=== PATIENT | female | born 1955 | race Caucasian/White ===

== ENCOUNTER 2024-04-10 14:27 | Emergency (ER) | payer OTHER, SELFPAY ==
[2024-04-10 14:43] VITALS: BP 180/101
[2024-04-10 15:01] VITALS: BP 160/87
[2024-04-10 15:16] VITALS: BP 147/84
[2024-04-10 15:27] LABS: % Basophils 0.9 % (0-2); % Eosinophils 1.8 % (0-6); % Immature Granulocytes 0.3 % (0-0.5); % Lymphocytes 31.9 % (20.5-51.1); % Monocytes 8.2 % (1.7-9.3); % Neutrophils 56.9 % (42.2-75.2); Absolute Basophils 0.1 10^3/uL (0-0.2); Absolute Eosinophils 0.1 10^3/uL (0-0.7); Absolute Lymphocytes 2.2 10^3/uL (1.2-3.4); Absolute Monocytes 0.6 10^3/uL (0.1-0.6); Absolute Neutrophils 3.9 10^3/uL (1.4-6.5); Hematocrit 36.8 % (37.0-47.0); Hemoglobin 12.6 g/dL (12.0-16.0); Mean Corp Hgb Conc. 34.2 g/dL (33.0-37.0); Mean Corpuscular Hgb 29.2 pg (27.0-31.0); Mean Corpuscular Volume 85.4 fL (81.0-99.0); Mean Platelet Volume 9.3 fL (7.4-10.4); Nucleated Red Blood Cells % 0 %; Platelet Count 249 10^3/uL (130-400); Red Blood Cell Count 4.31 10^6/uL (4.20-5.40); Red Cell Dist. Width 13.2 % (11.5-14.5); White Blood Cell Count 6.8 10^3/uL (4.8-10.8)
[2024-04-10 15:41] VITALS: BP 159/88
[2024-04-10 15:41] LABS: ALT (SGPT) 22 U/L (0-35); AST (SGOT) 27 U/L (14-36); Albumin 4.6 g/dl (3.5-5.0); Alkaline Phosphatase 51 U/L (38-126); Blood Urea Nitrogen 20 mg/dl (7-17); Calcium 10.9 mg/dl (8.4-10.2); Carbon Dioxide 27 mmol/L (22-30); Chloride 103 mmol/L (98-107); Glucose 102 mg/dl (70-99); Lipase 51 U/L (23-300); Potassium 4.4 mmol/L (3.5-5.1); Sodium 140 mmol/L (135-145); Total Bilirubin 0.6 mg/dl (0.2-1.3); Total Protein 7.3 g/dl (6.3-8.2); eGFR > 60.00
[2024-04-10 15:51] LABS: Troponin I 0.022 ng/ml
[2024-04-10 16:00] VITALS: BP 156/89
--- NOTE | 2024-04-10 16:56 | ED.GENMED ---
History of Present Illness
General
Chief Complaint: Chest Pain
Source: patient and spouse
Exam Limitations: none
Time Seen by Provider: 04/10/24 15:07
Nursing documentation reviewed up to this point in time: agreed with
History of Present Illness
History of Present Illness:
68-year-old female past medical history of hypertension hyperlipidemia presenting to the emergency department today with concerns of intermittent chest pain shortness of breath over the past few days. Symptoms somewhat worsening symptoms after
going up the stairs also noticed midnight last night of a heart rate of 124 with some mild chest discomfort at that time. Denies symptoms while here. Initially blood pressure was elevated
Past History
Past History
ED Past Medical History: HTN
ED Past Surgical History:
Social History
Tobacco: Non-smoker
Alcohol: Occasional
Personal:
Living: with family
Family History
Family History: Unable to obtain
Review of Systems
Review of Systems
Allergies reviewed?: Yes
All Other Systems: ROS reviewed and negative except as documented in HPI and ROS
Phy Exam
Physical Exam
Physical Exam:
GENERAL: Alert , in no apparent distress
EYE: pupils equal and reactive
NECK: Supple, no significant adenopathy.
ENT: o/p clr, mmm.
CARDIAC: Regular rate and rhythm .
LUNGS: Clear breath sounds bilaterally, no acute respiratory distress, no wheezes/rales/rhonchi
ABDOMEN: Soft, without focal tenderness, no r/g, no cvat
NEUROLOGICAL: Alert and oriented, no focal neuro deficits
SKIN: Warm and dry, skin intact.
MUSCULOSKELETAL: No edema, well perfused.
PSYCH: Normal and appropriate interaction.
Scores
Heart Score for Chest Pain Patients
STEMI patient?: No
History: Slightly or Non-Suspicious
ECG: Nonspecific Repolarization
Age: >/= 65 years
Risk Factors: 1 or 2 Risk Factors
Troponin: </= Normal Limit
Heart Score for Chest Pain Patients: 4
Heart Score Risk: 20.3% MACE over next 6 weeks
Course
Orders/Labs/Results
Orders:
Orders
04/10/24 15:11
EKG [Electrocardiogram (*1)] Urgent
Reason for Study: Chest Pain
Chest [CR Chest - 2 Views ] Urgent
Comment:
Reason For Exam: cp
04/10/24 15:12
EKG- Treatment ONCE
04/10/24 15:19
Complete Blood Count/With Diff Urgent
Comprehensive Metabolic Panel Urgent
Lipase Urgent
Troponin I Urgent
Abnormal Lab Results
04/10/24
15:19
Hct 36.8 L %
(37.0-47.0)
BUN 20 H mg/dl
(7-17)
Glucose 102 H mg/dl
(70-99)
Calcium 10.9 H mg/dl
(8.4-10.2)
04/10/24 15:19
04/10/24 15:19
Vital Signs
Initial and Last Documented VS:
Initial Vital Signs
Temp Pulse Resp BP Pulse Ox
98.4 F 89 18 180/101 98
04/10/24 14:43 04/10/24 14:43 04/10/24 14:43 04/10/24 14:43 04/10/24 14:43
Last Documented Vital Signs
Temp Pulse Resp BP Pulse Ox
98.4 F 63 16 157/83 98
04/10/24 14:43 04/10/24 17:00 04/10/24 17:00 04/10/24 17:00 04/10/24 17:00
MDM/Problems Addressed
MDM/Problems Addressed:
68-year-old female presenting to the emergency department today with concerns of chest discomfort intermittently last night had episode where her heart rate was elevated also had some chest pain associated. Here assessment without emergent findings
EKG nonischemic troponin negative. Patient appears stable for outpatient close cardiology follow-up return precautions given.
*Critical Care Note
Total Time (30-74mins, 75-104mins- exclusive of procedures): Not Applicable
ED Attending Note
-
Portions of this chart may have been created with voice recognition software.� Occasional wrong word or��sound alike� substitutions may have occurred due to the inherent limitations of voice recognition software.
Discharge Plan
Departure
Patient Disposition: Home (Routine Discharge)
Date of Disposition: 04/10/24
Time of Disposition: 16:56
Patient with high blood pressure during this ER visit?: No
Condition: Good
Covid-19: Not Applicable
Discharge Problem:
Chest pain
Instructions: Chest Pain DCA Follow Up
Prescriptions:
No Action
lisinopril 10 MG tablet
10 mg PO DAILY
metronidazole 500 MG tablet
500 mg PO TID Qty: 20 0RF
levofloxacin 500 MG tablet
500 mg PO DAILY Qty: 9 0RF
Referrals:
Delilah King MD [Family Provider] -
Activity Restrictions/Additional Instructions:
You came to the emergency department today with concerns of chest discomfort.. Here you had a reassuring assessment. Please follow closely with cardiology. Return to the emergency department any worsening, new or concerning symptoms.
Interventions
Interventions:
*Risk Screen - Suicide Last Done: 04/10/24 14:43
*General Assessment Last Done: 04/10/24 14:43
*Neglect/Abuse Screening Last Done: 04/10/24 14:43
ED- Fall Risk Assessment Last Done: 04/10/24 15:20
*ED COVID-19 Vaccine History Last Done: 04/10/24 14:43
*Nursing Disposition Last Done: 04/10/24 17:12
ED- Cardiac Assessment Last Done: 04/10/24 15:20
Discharge Date and Time
Discharge Date/Time: 04/10/24 17:12
Print Language: [id number]
[2024-04-10 17:00] VITALS: BP 157/83
== END 2024-04-10 17:12 | disposition home or self-care (01) ==
LOC: EMR 14:27
PROVIDERS: EMERGENCY PHYSICIAN Emergency Medicine; FAMILY PHYSICIAN Internal Medicine
DX: R07.89 Other chest pain (principal); E78.5 Hyperlipidemia, unspecified; I10 Essential (primary) hypertension
CPT/HCPCS: 99285; 71046; 80053; 83690; 84484; 85025; 93005

== ENCOUNTER → 2024-04-29 07:23 | Outpatient (REF) | payer OTHER, SELFPAY | LOC: DHCBC/DCA 07:23 | PROVIDERS: ATTENDING PHYSICIAN Internal Medicine Cardiovascular Disease; FAMILY PHYSICIAN Internal Medicine | DX: R07.89 Other chest pain (principal) | CPT/HCPCS: 78452; 93017; A9500; J2785 ==

== ENCOUNTER 2024-04-29 17:34 | Inpatient (IN) | payer OTHER, SELFPAY ==
[2024-04-29] VITALS (7 sets, daily range): BP systolic 108–176; BP diastolic 62–106; BMI 31.2
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
[2024-04-29 16:07] LABS: Hematocrit 35.6 % (37.0-47.0); Hemoglobin 12.2 g/dL (12.0-16.0); Mean Corp Hgb Conc. 34.3 g/dL (33.0-37.0); Mean Corpuscular Hgb 29.2 pg (27.0-31.0); Mean Corpuscular Volume 85.2 fL (81.0-99.0); Mean Platelet Volume 9.1 fL (7.4-10.4); Platelet Count 284 10^3/uL (130-400); Red Blood Cell Count 4.18 10^6/uL (4.20-5.40); Red Cell Dist. Width 12.7 % (11.5-14.5); White Blood Cell Count 7.5 10^3/uL (4.8-10.8)
[2024-04-29 16:15] LABS: ALT (SGPT) 26 U/L (0-35); AST (SGOT) 29 U/L (14-36); Albumin 4.3 g/dl (3.5-5.0); Alkaline Phosphatase 51 U/L (38-126); Blood Urea Nitrogen 17 mg/dl (7-17); Calcium 10.5 mg/dl (8.4-10.2); Carbon Dioxide 28 mmol/L (22-30); Chloride 103 mmol/L (98-107); Glucose 102 mg/dl (70-99); Potassium 4.2 mmol/L (3.5-5.1); Sodium 141 mmol/L (135-145); Total Bilirubin 0.2 mg/dl (0.2-1.3); eGFR > 60.00
[2024-04-29 16:18] LABS: INR 0.99; PT 13.1 Sec (11.4-14.6)
[2024-04-29 16:19] LABS: APTT 29.3 Sec (23.4-35.0)
[2024-04-29 16:27] LABS: Troponin I 0.034 ng/ml
[2024-04-29 16:39] LABS: % Basophils 1.1 % (0-2); % Eosinophils 1.5 % (0-6); % Immature Granulocytes 0.1 % (0-0.5); % Lymphocytes 31.3 % (20.5-51.1); % Monocytes 5.8 % (1.7-9.3); % Neutrophils 60.2 % (42.2-75.2); Absolute Basophils 0.1 10^3/uL (0-0.2); Absolute Eosinophils 0.1 10^3/uL (0-0.7); Absolute Lymphocytes 2.3 10^3/uL (1.2-3.4); Absolute Monocytes 0.4 10^3/uL (0.1-0.6); Absolute Neutrophils 4.5 10^3/uL (1.4-6.5); Nucleated Red Blood Cells % 0 %
--- NOTE | 2024-04-29 16:54 | CON.CAR ---
Addendum entered and electronically signed by Rodolfo Centeno MD 04/30/24 00:14:
I saw and examined the patient.
The Linen Tech's note was reviewed and I agree with the note.
Comment:
GEN: No distress, awake, Ox3
HEENT: supple, anicteric, mmm
LUNGS: CTA, no wheezes/rales
CV: Reg, S1/S2, 1/6 syst LSB, no gallop
ABD: soft, BS+, NT/ND
EXT: No edema
NEURO: Gross non-focal
SKIN: No rash
PLan:
Pt with unstable angina s/p abnormal nuclear stress test today
Cont IV heparin/ASA/Toprol
check lipids
likely switch to atorvastatin
Cont Lisinopril
Cath in AM
Original Note:
Consultation
Consultation Request
Date/Time Consultation Performed: 04/29/24
Requesting Provider: Dr. Gonzalez
Performing Provider: Jennifer Espana PA-C for Dr. Centeno
Reason for Consultation: abnormal stress test
Medical History
-
Chief Complaint: abnormal stress test
History of Present Illness:
Patient is a 68 yo F with PMH of HTN, HLD, remote former smoker who was seen as new patient in office 04/15/24 for evaluation of chest discomfort explained as pressure, mostly at night for about a month's duration. She was then visiting the
[place] with friends and noted discomfort after climbing several flights of stairs. She had been seen in ER and trop negative x1 and EKG with NSSTS. She was ordered exercise nuclear stress test completed 04/29/24 which was abnormal with large,
mod to severe reversible defect in anterior wall and septum from basal portion through apex consistent with LAD territory ischemia and EF 59%. She was sent to ER for admission with plan for cardiac catheterization in AM. She does note that after her
stress test today when she ran up the stairs to get changed, she again had recurrent chest pain that improved after taking Tums. No pain currently while in ER.
PMH:
HTN
HLD
remote former smoker
Past Medical History
Past Medical History: Other (in HPI)
Social History
Tobacco: Former Smoker (14y/o to 24 y/o )
Personal:
Living: With Family
Family History
Family History: CAD
Allergies / Home Medications
Allergy/AdvReac Type Severity Reaction Status Date / Time
Penicillins Allergy Unknown Verified 04/29/24 15:16
Sulfa (Sulfonamide Allergy Unknown Verified 04/29/24 15:16
Antibiotics)
�Medication �Instructions �Recorded �Confirmed �Type
amlodipine 5 mg tablet 5 mg PO DAILY 04/29/24 04/29/24 History
biotin 10,000 mcg chewable tablet 10,000 mcg PO DAILY 04/29/24 04/29/24 History
(Hair, Skin and Nails (biotin))
cholecalciferol (vitamin D3) 125 125 mcg PO DAILY 04/29/24 04/29/24 History
mcg (5,000 unit) tablet (Vitamin
D3)
lisinopril 20 mg tablet 20 mg PO DAILY 04/29/24 04/29/24 History
pantoprazole 40 mg tablet,delayed 40 mg PO DAILY 04/29/24 04/29/24 History
release
pravastatin 20 mg tablet 20 mg PO MOWEFR 04/29/24 04/29/24 History
vitamins A,C,N-abnz-cjatzm 4,296 1 cap PO DAILY 04/29/24 04/29/24 History
mcg-226 mg-90 mg capsule
(PreserVision AREDS)
Review of Systems
-
History Source: Patient
All other systems: Negative unless noted
Physical Exam
Vital Signs
Temp Pulse Resp BP Pulse Ox
98.4 F 70 14 145/95 100
04/29/24 15:16 04/29/24 15:45 04/29/24 15:45 04/29/24 15:45 04/29/24 15:45
Lab Results
04/29/24 15:52
04/29/24 15:52
Troponin I 0.034 ng/ml 04/29/24 15:52
Physical Exam
General: Well Developed, Well Nourished and No Apparent Distress
HEENT: Normocephalic, Anicteric and Moist Mucous Membranes
Respiratory: Clear and Non Labored Respirations
Cardiac: S1/S2 and Regular Rhythm
Musculoskeletal: No Clubbing, No Cyanosis and No Edema
Skin: Warm and Dry
Neuro: AO x 3 and Nonfocal/Grossly Intact
Psych: Calm
Impression / Plan
-
PCP: Dr. King
Sugar Reprocess Operator Head: Dr. Clinton
Impression:
Chest pain
Unstable angina
Abnormal stress test 04/29/2024
HTN
HLD
remote former smoker
Plan:
-She has been having progressive SOB and chest pain over the past month or so. Seen by cardiology and arranged for stress test.
-Stress test 04/29 was abnormal with moderate to severe reversible defect seen in the anterior wall and septum consistent with LAD territory ischemia.
-Patient called with results and she noted chest pain recurred after stress test and she was referred to [facility] for further urgent evaluation given unstable symptoms.
-In ER, initial troponin 0.034, continue to trend.
-EKG reviewed. SR, no acute ischemic changes noted.
-Took 324mg aspirin earlier in ER. Continue aspirin 81mg daily
-Given unstable symptoms, will start heparin
-NPO after midnight for LHC in AM.
-Check CVE, Hgb A1c in AM.
-Continue pravastatin for now, will likely need to transition to high intensity statin after LHC.
-Start Toprol 25mg daily, continue OP lisinopril 20mg daily and amlodipine 5mg daily.
-Further recommendations to be made post cath.
HPI: Patient is a 68 yo F with PMH of HTN, HLD, remote former smoker who was seen as new patient in office 04/15/24 for evaluation of chest discomfort explained as pressure, mostly at night for about a month's duration. She was then visiting the
[place] with friends and noted discomfort after climbing several flights of stairs. She had been seen in ER and trop negative x1 and EKG with NSSTS. She was ordered exercise nuclear stress test completed 04/29/24 which was abnormal with large,
mod to severe reversible defect in anterior wall and septum from basal portion through apex consistent with LAD territory ischemia and EF 59%. She was sent to ER for admission with plan for cardiac catheterization in AM. She does note that after her
stress test today when she ran up the stairs to get changed, she again had recurrent chest pain that improved after taking Tums. No pain currently while in ER.
Data Reviewed
-
EKG: Tracing Personally Visualized and interpreted
Medical Tests (Nuc Med, Echo etc): Report Reviewed by me
Labs: Labs Reviewed by me
Old Records: Reviewed
[2024-04-29] MEDS: NITRO-BID 1 INCH TOPICAL (17:08)
[2024-04-29] MEDS: HEPARIN 25000 UNITS/250 ML IV (18:36)
[2024-04-29] MEDS: TOPROL XL 25 MG PO (18:36)
[2024-04-29 20:57] LABS: Troponin I 0.044 ng/ml
--- NOTE | 2024-04-29 21:23 | PTCARENOTE ---
Pt admitted to room 2246. Pt AAOx3 VSS. Denies pain or SOB. Ambulates independently in the room. Heparin gtt 10ml/hr. Pt oriented to room. All safety measures in place.
[2024-04-30] VITALS (11 sets, daily range): BP systolic 104–167; BP diastolic 64–150; BMI 31.0
[2024-04-30 00:30] LABS: APTT 74.1 Sec (23.4-35.0)
[2024-04-30 05:45] LABS: Hematocrit 33.7 % (37.0-47.0); Hemoglobin 11.6 g/dL (12.0-16.0); Mean Corp Hgb Conc. 34.4 g/dL (33.0-37.0); Mean Corpuscular Hgb 29.3 pg (27.0-31.0); Mean Corpuscular Volume 85.1 fL (81.0-99.0); Mean Platelet Volume 9.2 fL (7.4-10.4); Platelet Count 253 10^3/uL (130-400); Red Blood Cell Count 3.96 10^6/uL (4.20-5.40); Red Cell Dist. Width 12.5 % (11.5-14.5); White Blood Cell Count 7.6 10^3/uL (4.8-10.8)
[2024-04-30 06:09] LABS: APTT 93.1 Sec (23.4-35.0)
[2024-04-30 06:10] LABS: Troponin I 0.042 ng/ml
[2024-04-30 06:43] LABS: Blood Urea Nitrogen 15 mg/dl (7-17); Calcium 10.3 mg/dl (8.4-10.2); Carbon Dioxide 24 mmol/L (22-30); Chloride 107 mmol/L (98-107); Estimated Creatinine Clearance 68 ml/min; Glucose 98 mg/dl (70-99); HDL Cholesterol 65 mg/dl; LDL Cholesterol, Calculated 87 mg/dl; Sodium 142 mmol/L (135-145); Total Cholesterol 175 mg/dl (50-199); Triglyceride 119 mg/dl (10-149); Very Low Density Lipoprotein 23 mg/dl (0-30); eGFR > 60.00
[2024-04-30] MEDS: NORVASC 5 MG PO (08:31)
[2024-04-30] MEDS: TOPROL XL 25 MG PO (08:32)
[2024-04-30] MEDS: ZESTRIL 20 MG PO (08:32)
[2024-04-30] MEDS: PROTONIX 40 MG PO (08:32)
[2024-04-30] MEDS: VITAMIN D3 (cholecalciferol) 125 MCG PO (08:32)
[2024-04-30] MEDS: LOW STRENGTH ASPIRIN 81 MG PO (08:32)
--- NOTE | 2024-04-30 08:56 | ITS.CL.CATH ---
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
Cardiac Catheterization
Procedure Report:
LEFT HEART CATHETERIZATION AND CORONARY INTERVENTION
Date of Procedure: April 30, 2024
Referring: Dean Centeno
PROCEDURES:
1. Left catheterization, coronary angiogram.
2. Ultrasound-guided access.
3. Successful percutaneous coronary artery intervention of a 80% proximal LAD stenosis with a 3.0 x 18 mm Medtronic [place] drug-eluting stent, postdilated using IVUS guidance with a 3.5 x 15 mm NC balloon at 18 rosa distally and 20 rosa proximally with
an excellent angiographic result and 0% residual stenosis.
4. Intravascular ultrasound (IVUS)
INDICATION: Patient is a 68-year-old female with past medical history of hypertension, hyperlipidemia who presents with 1 month long history of intermittent chest discomfort and shortness of breath referred for nuclear stress test which showed
significant perfusion abnormality which is reversible in the LAD territory and therefore patient was directed for further workup and management to the emergency department yesterday. Her initial troponin had been negative with mild uptrending
concerning for possible acute coronary syndrome. She is now being referred for a left heart catheterization to rule out obstructive CAD. Peak troponin of 0.05.
ACCESS: Right radial artery, 6 [place] sheath, under ultrasound guidance
HEMODYNAMICS : (mmHg)
AO (s/d) : 118/72
LV (s/d) : 122/8
LVEDP : 19
CORONARY FINDINGS
DOMINANCE: Right
LEFT MAIN: Left main is cloacal in appearance giving rise to a left anterior descending artery and the left circumflex artery. Minimal luminal irregularities.
LEFT ANTERIOR DESCENDING: The left anterior descending artery is a medium to large caliber vessel which gives rise to 2 major diagonal branches as it courses to the anterior interventricular groove and wraps around the apex. There is a 80% tubular
proximal LAD stenosis. Intervention was performed here with details below.
CIRCUMFLEX: The left circumflex artery is a large-caliber vessel which gives rise to 3 major obtuse marginal branches and 2 posterolateral branches. There is minimal luminal irregularities.
RIGHT CORONARY ARTERY: The right coronary artery is a large-caliber, dominant vessel which gives rise to the right posterior descending artery. There is minimal luminal irregularities.
CORONARY INTERVENTION: Decision was made to proceed with intervention to the proximal LAD. Additional heparin was given to maintain a therapeutic ACT throughout the case. The left coronary artery was selectively engaged using a 6 [place] JR L3.5
guide catheter. A 190 cm 0.014' BMW coronary wire was advanced into the left circumflex artery. A second 190 cm 0.014' power turn flex wire was carefully navigated across the proximal LAD stenosis into the distal LAD. The proximal LAD stenosis
was predilated using a 3.0 x 10 mm semi-compliant balloon at 14 rosa with good expansion. The lesion was subsequently stented using a 3.0 x 18 mm Medtronic Mabelv[place] frontier drug-eluting stent. The stent was postdilated using IVUS guidance with a 3.5 x
15 mm NC balloon at 18 rosa distally and 20 rosa proximally with an excellent angiographic result. Post PCI IVUS showed a well-expanded and well apposed stent without evidence of distal or proximal stent edge dissections. Patient was loaded with 180
mg of Brilinta at the end of the case. She tolerated the procedure well with no acute complications.
SEDATION: 84 minutes of procedural sedation was utilized. An independent medical record librarian was present to assist with and help manage the patient's level of consciousness and physiologic status.
RADIATION SUMMARY: Fluoro Time (min): 13.6, Dose (mGy): 779.51, DAP (Gy.cm2) : 37.19
Closure Device: Vascular band over right radial artery, 10 cc of air.
CONCLUSIONS
1. Successful percutaneous coronary artery intervention of a 80% proximal LAD stenosis with a 3.0 x 18 mm Medtronic [place] drug-eluting stent, postdilated using IVUS guidance with a 3.5 x 15 mm NC balloon at 18 rosa distally and 20 rosa proximally with
an excellent angiographic result and 0% residual stenosis. Post PCI IVUS showed a well-expanded and well apposed stent without evidence of distal or proximal stent edge dissections.
2. No obstructive coronary artery disease otherwise.
3. Elevated LVEDP at 19 mmHg.
RECOMMENDATIONS
1. Dual antiplatelet therapy with daily baby aspirin and Brilinta 90 mg twice daily along with high intensity statin and beta-porsha as tolerated.
2. Wean radial band per protocol.
3. Full echocardiogram to assess biventricular function and rule out any significant valvular abnormalities.
4. Aggressive management of cardiovascular risk factors.
5. Referral for outpatient cardiac rehab.
Copy to: Robert Clinton MD and Dean Centeno MD
Amy Razo MD, [facility], [facility]
--- NOTE | 2024-04-30 09:12 | PTCARENOTE ---
pt is sr on the monitor, hr in the 80s, vss. pt offers no complaints at this time. pt educated on plan of care and pt verbalized understanding. call salomon within reach.
pt off unit for procedure.
[2024-04-30 09:13] LABS: Glycohemoglobin (HgbA1c) 5.6 % (4.0-5.6)
[2024-04-30 09:38] LABS: ACT-LR - POC 265 Seconds (116-155)
[2024-04-30 09:48] LABS: ACT-LR - POC 324 Seconds (116-155)
[2024-04-30 10:05] LABS: ACT-LR - POC 302 Seconds (116-155)
--- NOTE | 2024-04-30 10:48 | PTCARENOTE ---
received pt post cath. pt offers no complaints at this time. right radial band cdi. pt denies pain at this time. pt educated on plan of care and pt verbalized understanding. pt resting in bed comfortably.
--- NOTE | 2024-04-30 12:23 | CM ---
Addendum entered by Erin Campos RN 04/30/24 13:03:
Patient is agreeable to cost
Original Note:
Pricing on Brilinta through the patient's [facility] is $45 for a 30 day supply. I will place a free 30 day coupon in the patient's red discharge folder.
--- NOTE | 2024-04-30 13:04 | CM ---
Chart reviewed. Patient is independent of ADLS, lives with her in a 2 STH, 0 RADHA, 0 DME. Plan is for the patient to return home. CM to follow
--- NOTE | 2024-04-30 17:35 | PTCARENOTE ---
pt continues to be sr on the monitor, hr in the 70s, vss. pt offers no complaints at this time. pt has been ambulating and tolerating well. right radial is CDI. pt offers no complaints at this time. pt educated on plan of care and pt verbalized
understanding. call salomon within reach.
[2024-04-30] MEDS: CRESTOR 20 MG PO (17:47)
[2024-04-30] MEDS: BRILINTA 90 MG PO (19:47)
--- NOTE | 2024-04-30 22:05 | PTCARENOTE ---
Rec'd pt at change of shift. AAOX3. Tele- SR 60s. Assessment completed as documented. R radial dsg is c/d/i. Pt has no c/o pain/discomfort at this time. Plan of care reviewed w/ pt. Verbalizes understanding. Currently in bed; call umm w/in reach.
[2024-05-01 02:42] VITALS: BP 124/80
[2024-05-01 02:59] LABS: Hematocrit 35.1 % (37.0-47.0); Hemoglobin 12.4 g/dL (12.0-16.0); Mean Corp Hgb Conc. 35.3 g/dL (33.0-37.0); Mean Corpuscular Hgb 29.7 pg (27.0-31.0); Mean Corpuscular Volume 84.2 fL (81.0-99.0); Platelet Count 286 10^3/uL (130-400); Red Blood Cell Count 4.17 10^6/uL (4.20-5.40); Red Cell Dist. Width 12.7 % (11.5-14.5); White Blood Cell Count 8.3 10^3/uL (4.8-10.8)
[2024-05-01 03:46] LABS: Blood Urea Nitrogen 17 mg/dl (7-17); Calcium 10.6 mg/dl (8.4-10.2); Carbon Dioxide 26 mmol/L (22-30); Chloride 103 mmol/L (98-107); Estimated Creatinine Clearance 60 ml/min; Glucose 96 mg/dl (70-99); Sodium 140 mmol/L (135-145); eGFR > 60.00
--- NOTE | 2024-05-01 06:50 | W.PN.CARDCBS ---
Addendum entered and electronically signed by Vasquez Montero MD 05/01/24 09:07:
Patient seen and examined
Agree with PRODUCTION SKI REPAIRER note and assessment
Agree with PRODUCTION SKI REPAIRER plan
�
����Physical Exam
�
���������������������General:��no apparent distress, not acutely ill
�
���������������������������Neck:��supple. no meningeal signs. normal psoterior pharynx
������������������������
���������������������������Heart:��s1/s2 regular rate and rhythm, no murmur. equal radial pulses.
�
��������������������������Lungs: ��no acute respiratory distress. clear bilaterally
�
����������������������Abdomen:�normal bowel sounds. not tender. no CVAT
�
��������������������������Neuro:��alert and oriented. no focal neurological deficits
�
������������������������������Skin: ��no rash
�
�����������������������Psychiatric:�well kept. interactive and cooperative
�
�����������������������Extremities:��no edema. no calf tenderness. negative homans. good distal pulses
�
�
�
��
�
Warehouse Operator: Dr. Clinton
Impression:
s/p PTCA and NANI prox LAD
Chest pain
Unstable angina
Abnormal stress test 04/29/2024
elevated troponins
HTN
HLD
remote former smoker
LHC 04/30/24: LM: min LIs, LAD: 80% prox stenosis - NANI placed, LCIRC and RCA w/ min LIs
echo 04/30/24: EF 60-65%, no wall motion abnl, nl RV
EKG1:NSR, T wave inversions V2, V3- no change compared to 04/30/24 EKG
telemetry personally reviewed: NSR, HR 50-60s.
Plan:
-s/p PTCA and NANI prox LAD 04/30/24, Medtronic [place] stent
-DAPT ASA/Brilinta
-high intensity statin- LDL 87 on 04/30/24, switched from Pravastatin to Rosuvastatin 20 mg
-Toprol 25 mg daily started
-cont outpt Lisinopril 20 mg and Amlodipine 5 mg
-Hgb A1c 5.6
-echo post cath showed nl LV fxn with no wall motion abnl
-referral for outpt cardiac rehab- consult was placed 04/30/24
-f/u Dr Willard scheduled for 06/09/24
For discharge today
Original Note:
Today's Communication / Plan
-
-s/p NANI LAD
-DAPT, high intensity statin, beta porsha, BP control
-cardiac rehab
-ok for d/c today
Impression / Plan
-
PCP: Dr. King
Warehouse Operator: Dr. Clinton
Impression:
s/p PTCA and NANI prox LAD
Chest pain
Unstable angina
Abnormal stress test 04/29/2024
elevated troponins
HTN
HLD
remote former smoker
LHC 04/30/24: LM: min LIs, LAD: 80% prox stenosis - NANI placed, LCIRC and RCA w/ min LIs
echo 04/30/24: EF 60-65%, no wall motion abnl, nl RV
EKG1:NSR, T wave inversions V2, V3- no change compared to 04/30/24 EKG
telemetry personally reviewed: NSR, HR 50-60s.
Plan:
-s/p PTCA and NANI prox LAD 04/30/24, Medtronic Pullman stent
-DAPT ASA/Brilinta
-high intensity statin- LDL 87 on 04/30/24, switched from Pravastatin to Rosuvastatin 20 mg
-Toprol 25 mg daily started
-cont outpt Lisinopril 20 mg and Amlodipine 5 mg
-Hgb A1c 5.6
-echo post cath showed nl LV fxn with no wall motion abnl
-referral for outpt cardiac rehab- consult was placed 04/30/24
-f/u Dr Hullman scheduled for 06/09/24
-She has been having progressive SOB and chest pain over the past month or so. Seen by cardiology and arranged for stress test.
-Stress test 04/29 was abnormal with moderate to severe reversible defect seen in the anterior wall and septum consistent with LAD territory ischemia.
-Patient called with results and she noted chest pain recurred after stress test and she was referred [facility] for further urgent evaluation given unstable symptoms.
-In ER, initial troponin 0.034, peak 0.050
-EKG reviewed. SR, no acute ischemic changes noted.
-Took 324mg aspirin earlier in ER. Continue aspirin 81mg daily
-Given unstable symptoms, will start heparin
-NPO after midnight for LHC in AM.
-Check CVE, Hgb A1c in AM.
-Continue pravastatin for now, will likely need to transition to high intensity statin after LHC.
-Start Toprol 25mg daily, continue OP lisinopril 20mg daily and amlodipine 5mg daily.
-Further recommendations to be made post cath.
HPI: Patient is a 68 yo F with PMH of HTN, HLD, remote former smoker who was seen as new patient in office 04/15/24 for evaluation of chest discomfort explained as pressure, mostly at night for about a month's duration. She was then visiting the
[place] with friends and noted discomfort after climbing several flights of stairs. She had been seen in ER and trop negative x1 and EKG with NSSTS. She was ordered exercise nuclear stress test completed 04/29/24 which was abnormal with large,
mod to severe reversible defect in anterior wall and septum from basal portion through apex consistent with LAD territory ischemia and EF 59%. She was sent to ER for admission with plan for cardiac catheterization in AM. She does note that after her
stress test today when she ran up the stairs to get changed, she again had recurrent chest pain that improved after taking Tums. No pain currently while in ER.
Progress Note - Warehouse Operator
Subjective
Date of Service: May 01, 2024
s/p NANI prox LAD 04/30/24
no recurrent CP
would like to go home
Objective
Labs:
05/01/24 02:45
05/01/24 02:45
Labs
Hgb 12.4 g/dL (12.0-16.0) 05/01/24 02:45
Hct 35.1 % (37.0-47.0) L 05/01/24 02:45
Plt Count 286 10^3/uL (130-400) 05/01/24 02:45
PT 13.1 Sec (11.4-14.6) 04/29/24 15:52
INR 0.99 04/29/24 15:52
APTT Cancelled 05/01/24 06:00
Sodium 140 mmol/L (135-145) 05/01/24 02:45
Potassium 4.0 mmol/L (3.5-5.1) 05/01/24 02:45
BUN 17 mg/dl (7-17) 05/01/24 02:45
Creatinine 0.9 mg/dL (0.6-1.0) 05/01/24 02:45
Glucose 96 mg/dl (70-99) 05/01/24 02:45
Troponins
04/29/24 04/29/24 04/29/24
15:52 17:14 20:23
Troponin I 0.034 0.040 H* 0.044 H*
04/30/24 04/30/24
00:10 05:32
Troponin I 0.050 H* 0.042 H*
Vital Signs and I&O:
Vital Signs
Temp Pulse Resp BP Pulse Ox
98.2 F 55 18 124/80 97
05/01/24 02:52 05/01/24 03:45 05/01/24 02:52 05/01/24 02:42 05/01/24 02:52
Vital Signs
Temp Pulse Resp BP Pulse Ox
98.2 F 55 18 124/80 97
05/01/24 02:52 05/01/24 03:45 05/01/24 02:52 05/01/24 02:42 05/01/24 02:52
Physical Exam
Physical Exam
GEN: No distress, awake, Ox3
HEENT: supple, anicteric, mmm
LUNGS: CTA, no wheezes/rales
CV: Reg, S1/S2, no murmur
ABD: soft, BS+, NT/ND
EXT: No edema, R wrist cath puncture site covered with occlusive bandage, no erythema or hematoma, 2+ R radial pulse
NEURO: Gross non-focal
SKIN: No rash
--- NOTE | 2024-05-01 07:18 | W.DS.TRANS ---
DC Summary - Utilization Review Specialist
-
Discharge Instructions:
Discharge Diagnosis/Procedures NSTEMI, Angioplasty with stent to LAD
Diet Low Cholesterol
Driving Restrictions No driving for 24 hours
Other Services Cardiac Rehab
Instructions:
Stand-Alone Forms: DC Instructions- Cath/EP Lab
Changes to Home Medications: Yes
Discharge Medications:
DC Medications w/original date entered in [employer]
amlodipine 5 mg tablet 5 mg PO DAILY 04/29/24
biotin 10,000 mcg chewable tablet (Hair, Skin and Nails (biotin)) 10,000 mcg PO DAILY 04/29/24
cholecalciferol (vitamin D3) 125 mcg (5,000 unit) tablet (Vitamin D3) 125 mcg PO DAILY 04/29/24
lisinopril 20 mg tablet 20 mg PO DAILY 04/29/24
pantoprazole 40 mg tablet,delayed release 40 mg PO DAILY 04/29/24
vitamins A,C,C-bdba-symeng 4,296 mcg-226 mg-90 mg capsule (PreserVision AREDS) 1 cap PO DAILY 04/29/24
aspirin 81 mg chewable tablet 81 mg PO DAILY #1 tab 04/30/24
metoprolol succinate 25 mg tablet,extended release 24 hr 25 mg PO DAILY #90 tabs 04/30/24
rosuvastatin 20 mg tablet 20 mg PO QPM #30 tabs 04/30/24
ticagrelor 90 mg tablet (Brilinta) 90 mg PO BID #60 tabs 04/30/24
Home Medication Changes
-stop pravastatin (changing to Rosuvastatin)
Pending Results: No
[2024-05-01] MEDS: TOPROL XL 25 MG PO (08:27)
[2024-05-01] MEDS: NORVASC 5 MG PO (08:27)
[2024-05-01] MEDS: PROTONIX 40 MG PO (08:28)
[2024-05-01] MEDS: VITAMIN D3 (cholecalciferol) 125 MCG PO (08:28)
[2024-05-01] MEDS: LOW STRENGTH ASPIRIN 81 MG PO (08:28)
[2024-05-01] MEDS: BRILINTA 90 MG PO (08:28)
[2024-05-01] MEDS: ZESTRIL 20 MG PO (08:28)
--- NOTE | 2024-05-01 10:33 | PTCARENOTE ---
Assessment as documented - no complaints. Discharged as planned.
== END 2024-05-01 10:35 | disposition home or self-care (01) | DRG 322 ==
LOC: IVU 17:34
PROVIDERS: Emergency Medicine; Internal Medicine Interventional Cardiology; Nurse Practitioner Adult Health; Nurse Practitioner Primary Care; Physician Assistant; ADMITTING PHYSICIAN Internal Medicine Cardiovascular Disease; ATTENDING PHYSICIAN Internal Medicine Cardiovascular Disease; EMERGENCY PHYSICIAN Emergency Medicine; FAMILY PHYSICIAN Internal Medicine
PROC: 027034Z Dilation of Coronary Artery, One Artery with Drug-eluting Intraluminal Device, Percutaneous Approach (ICD-10-PCS; 2024-04-30)
PROC: 4A023N7 Measurement of Cardiac Sampling and Pressure, Left Heart, Percutaneous Approach (ICD-10-PCS; 2024-04-30)
PROC: B2111ZZ Fluoroscopy of Multiple Coronary Arteries using Low Osmolar Contrast (ICD-10-PCS; 2024-04-30)
PROC: B240ZZ3 Ultrasonography of Single Coronary Artery, Intravascular (ICD-10-PCS; 2024-04-30)
DX: I21.4 Non-ST elevation (NSTEMI) myocardial infarction (principal); I25.10 Atherosclerotic heart disease of native coronary artery without angina pectoris; I10 Essential (primary) hypertension; E78.00 Pure hypercholesterolemia, unspecified; Z79.899 Other long term (current) drug therapy; Z87.891 Personal history of nicotine dependence; Z88.0 Allergy status to penicillin; Z88.2 Allergy status to sulfonamides; Z82.49 Family history of ischemic heart disease and other diseases of the circulatory system
CPT/HCPCS: 80048; 80053; 80061; 83036; 84484; 85025; 85027; 85347; 85610; 85730; 92978; 93005; 93306; 93458; 99152; 99153; 99285; C1725; C1753; C1769; C1874; C1894; C9600; Q9967

== ENCOUNTER 2024-06-16 09:42 | Outpatient (RCR) | payer OTHER, SELFPAY | END 2024-06-16 23:59 | disposition home or self-care (01) | LOC: CRHB 09:42 | PROVIDERS: ATTENDING PHYSICIAN Internal Medicine Cardiovascular Disease | DX: I25.10 Atherosclerotic heart disease of native coronary artery without angina pectoris (principal); Z95.5 Presence of coronary angioplasty implant and graft; I21.4 Non-ST elevation (NSTEMI) myocardial infarction | CPT/HCPCS: G0422; G0423 ==

== ENCOUNTER → 2024-07-09 12:32 | Outpatient (REF) | payer OTHER, SELFPAY | LOC: HWWDC 12:32 | PROVIDERS: ATTENDING PHYSICIAN Obstetrics & Gynecology; FAMILY PHYSICIAN Internal Medicine | DX: Z12.31 Encounter for screening mammogram for malignant neoplasm of breast (principal) | CPT/HCPCS: 77063; 77067 ==

== ENCOUNTER 2024-07-19 10:43 | Outpatient (RCR) | payer OTHER, SELFPAY | END 2024-07-19 23:59 | disposition home or self-care (01) | LOC: CRHB 10:43 | PROVIDERS: ATTENDING PHYSICIAN Internal Medicine Cardiovascular Disease; FAMILY PHYSICIAN Internal Medicine | DX: I25.2 Old myocardial infarction (principal); I25.10 Atherosclerotic heart disease of native coronary artery without angina pectoris; Z95.5 Presence of coronary angioplasty implant and graft | CPT/HCPCS: G0422; G0423 ==

== ENCOUNTER 2024-08-20 09:53 | Outpatient (RCR) | payer OTHER, SELFPAY | END 2024-08-20 23:59 | disposition home or self-care (01) | LOC: CRHB 09:53 | PROVIDERS: ATTENDING PHYSICIAN Internal Medicine Cardiovascular Disease; FAMILY PHYSICIAN Internal Medicine | DX: I25.10 Atherosclerotic heart disease of native coronary artery without angina pectoris (principal); I25.2 Old myocardial infarction; Z95.5 Presence of coronary angioplasty implant and graft | CPT/HCPCS: G0422; G0423 ==

== ENCOUNTER 2024-09-08 09:52 | Outpatient (RCR) | payer OTHER, SELFPAY ==
[2024-09-01 09:26] LABS: HDL Cholesterol 95 mg/dl; LDL Cholesterol, Calculated 30 mg/dl; Total Cholesterol 144 mg/dl (50-199); Triglyceride 97 mg/dl (10-149); Very Low Density Lipoprotein 19 mg/dl (0-30)
== END 2024-09-08 23:59 | disposition home or self-care (01) ==
LOC: CRHB 09:52
PROVIDERS: ATTENDING PHYSICIAN Internal Medicine Cardiovascular Disease; FAMILY PHYSICIAN Internal Medicine
DX: I21.4 Non-ST elevation (NSTEMI) myocardial infarction (principal); Z95.5 Presence of coronary angioplasty implant and graft; I25.10 Atherosclerotic heart disease of native coronary artery without angina pectoris
CPT/HCPCS: 80061; G0422; G0423